=== PATIENT | male | born 1995 | race African-American/Black ===

== ENCOUNTER 2021-02-24 18:44 | Emergency (ER) | payer SELFPAY ==
[~2021-02-24] VITALS: Ht 160 cm; Wt 67.0 kg
--- NOTE | 2021-02-24 19:12 | PHYS DOC ---
Past Medical History Past Medical History: No Pertinent History Past Surgical History: No Surgical History Smoking Status: Current Some Day Smoker Alcohol Use: None Drug Use: None General Adult EDM: Chief Complaint: SEXUALLY TRANSMITTED DISEASE HPI: HPI: Patient is a 25-year-old male presenting for STI concern. Reports having unprotected sexual intercourse with an individual approximately 2 to 4 weeks ago. States x1 week of penile discharge and dysuria without systemic signs or symptoms of illness such as fever, chills, flank/abdominal/suprapubic pain. Also reports posterior head pain, states 4 days ago he hit the posterior portion of his head on a car door when trying to get out. He has not taken anything for this pain. He feels like "blood is rushing [id number] in my head". Denies any falls, vision changes, chest pain, shortness of breath, bladder or bowel incontinence, motor/sensory/neurologic changes Review of Systems: Review of Systems: Fourteen body systems of review of systems have been reviewed. See HPI for pert inent positives and negative responses, other allen all other systems are negative, non-pertinent or non-contributory Heart Score: C/O Chest Pain: No Risk Factors: Risk Factors: DM, Current or recent (<one month) smoker, HTN, HLP, family history of CAD, obesity. Risk Scores: Score 0 - 3: 2.5% MACE over next 6 weeks - Discharge Home Score 4 - 6: 20.3% MACE over next 6 weeks - Admit for Clinical Observation Score 7 - 10: 72.7% MACE over next 6 weeks - Early Invasive Strategies Physical Exam: PE: Constitutional: Well developed, well nourished, no acute distress, non-toxic appearance. HENT: Normocephalic, atraumatic, bilateral external ears normal, oropharynx moist, no oral exudates, nose normal. Eyes: PERRLA, EOMI, conjunctiva normal, no discharge. Neck: Normal range of motion, no tenderness, supple, no stridor. Cardiovascular: Heart rate regular, sinus rhythm, no murmurs rubs or gallops Lungs & Thorax: Bilateral breath sounds clear to auscultation Abdomen: Bowel sounds normal, soft, no tenderness, no masses, no pulsatile masses. Nonsurgical abdomen, no peritoneal signs : Patient deferred Skin: Warm, dry, no erythema, no rash. Back: No tenderness, no CVA tenderness. Extremities: No tenderness, no cyanosis, no clubbing, ROM intact, no edema. Neurologic: Alert and oriented X 3, cranial nerves II through XII intact, normal motor & sensory function, no focal deficits noted. Psychologic: Affect normal, judgement normal, mood normal. Current Patient Data: Vital Signs: Vital Signs Date Time Temp Pulse Resp B/P (MAP) Pulse Ox O2 Delivery O2 Flow Rate FiO2 02/24/21 19:21 98.4 69 16 129/86 (100) 100 Room Air 98.4 Vital Signs Date Time Temp Pulse Resp B/P (MAP) Pulse Ox O2 Delivery O2 Flow Rate FiO2 02/24/21 19:21 98.4 69 16 129/86 (100) 100 Room Air 98.4 EKG: EKG: [] Radiology/Procedures: Radiology/Procedures: [] Course & Med Decision Making: Course & Med Decision Making Discussed with the patient all findings and diagnostic testing. I discussed most likely diagnosis of STI exposure requiring prophylactic treatment and complicated UTI in male patient. I discussed that testing today for STIs such as gonorrhea and chlamydia would take a while to come back and so, joint decision was made to treat prophylactically. Patient will be contacted and notified of results when appropriate. Patient instructed on side effects for doxycycline such as photosensitivity and diarrhea in addition to ciprofloxacin such as tendon rupture etc. Also discussed likely diagnosis of contusion to posterior head, I disclose normal vitals and physical exam findings without red flag signs or symptoms prompting need for further diagnostic work-up in ER setting such as CT head imaging versus other. Patient does not have a primary care physician, I instructed that he needs to establish care with one. I stressed need for close outpatient follow-up to review today's ER visit and further testing such as syphilis and HIV. Also advised continued supportive care practices such as ice and utilizing NSAIDs and/or Tylenol for pain for posterior head. Strict return precautions were also discussed at length with good understanding by patient. Patient voiced understanding and agreement with the plan. Patient knows to come back for repeat evaluation if concerning signs or symptoms present prior to outpatient follow-up. Hemodynamically stable, ambulatory and well-appearing at time of disposition. Dragon Disclaimer: Dragon Disclaimer: This electronic medical record was generated, in whole or in part, using a voice recognition dictation system. Departure Departure Impression: Primary Impression: Penile discharge Additional Impressions: Contusion UTI (urinary tract infection) Disposition: HOME / SELF CARE / HOMELESS Condition: STABLE Patient Instructions: Contusion, Sexually Transmitted Disease, Urinary Tract Infection Additional Instructions: You were seen for an STD. You were tested for the most common STDs. It is not clear when/where you became infected and many people can be asymptomatic. You need to have testing for syphilis, hepatitis, and other STD/STI testing done at the health department or your primary care doctor's office. You should avoid sex for the next week and use condoms in the future. You must have all your sexual partners tested, treated, and avoid sexual intercourse for 1 week after all parties have finished treatment. Strict adherence may still not prevent re- infection. Return to the ED if you develop any new or concerning symptoms. In addition to the above, you are likely suffering from a contusion to your head caused by getting hit by a car door x4 days ago that is causing you pain. A Rest, Ice, Compression, Elevation (RICE) strategy may also be helpful in the acute phase. In addition, you should utilize NSAIDs and/or Tylenol as needed for pain control. Please follow up with your primary doctor. Please return to the ED if new or worrisome symptoms arise such as vision changes, falls, and difficulty walking present prior to outpatient follow-up. Scripts Ciprofloxacin Hcl (CIPROFLOXACIN HCL) 500 Mg Tablet 1 TAB PO BID for 7 Days, #13 TAB Prov: LATANYA MUÑOZ DO 02/24/21 Doxycycline Hyclate (DOXYCYCLINE HYCLATE) 100 Mg Capsule 1 CAP PO BID for STD for 7 Days, #13 CAP Prov: LATANYA MUÑOZ DO 02/24/21 LATANYA MUÑOZ DO Feb 24, 2021 19:12
[2021-02-24 19:21] VITALS: BP 129/86
[2021-02-24] MEDS ORDERED: cefTRIAXone IM 500 MG VIAL. IM ONE (19:45)
[2021-02-24] MEDS ORDERED: DOXYCYCLINE HYCLATE 100 MG TABLET PO ONE (19:45)
[2021-02-24 19:46] LABS: BILIRUBIN,URINE NEGATIVE (NEG); CLARITY,URINE CLEAR; COLOR,URINE YELLOW; NITRITE,URINE NEGATIVE (NEG); PROTEIN,URINE NEGATIVE (NEG-TRACE)
[2021-02-24 19:54] LABS: BACTERIA,URINE 0 /HPF (0-FEW); RBC,URINE 0 /HPF (0-2); WBC,URINE 20-40 /HPF (0-4)
[2021-02-24] MEDS ORDERED: DOXY100C2 PO (19:58)
[2021-02-24] MEDS ORDERED: CIPR500T2 PO (20:07)
[2021-02-24] MEDS ORDERED: CIPROFLOXACIN HCL 250 MG TABLET. PO ONE (20:15)
== END 2021-02-24 20:32 | disposition home or self-care (01) ==
LOC: ER 18:44
DX: S00.83XA Contusion of other part of head, initial encounter (principal); N39.0 Urinary tract infection, site not specified; R36.9 Urethral discharge, unspecified; F17.200 Nicotine dependence, unspecified, uncomplicated; W22.8XXA Striking against or struck by other objects, initial encounter; Y93.89 Activity, other specified; Y92.89 Other specified places as the place of occurrence of the external cause; Y99.8 Other external cause status
CPT/HCPCS: 81001; 87086; 87491; 87591; 96372; 99283; J0696